=== PATIENT | male | born 1970 | race Caucasian/White ===

== ENCOUNTER 2017-01-28 19:00 | Emergency (ER) | payer BC, OTHER ==
[~2017-01-28] VITALS: Ht 174 cm; Wt 63.7 kg
[2017-01-28 19:00] VITALS: TEMP 36.8; Ht 174 cm; Wt 63.7 kg
[2017-01-28] MEDS ORDERED: MoRPHine SULFATE 4 MG/ML 1 ML CARP\\VIAL IV STA ×2 (19:06→19:23)
[2017-01-28] MEDS ORDERED: ADAL40KI INJ (19:10)
[2017-01-28] MEDS ORDERED: MoRPHine SULFATE 2 MG/ML CARP ONE (19:12)
[2017-01-28] MEDS ORDERED: ONDANSETRON INJ 2 MG/ML 2 ML VIAL ONE (19:12)
--- NOTE | 2017-01-28 19:35 | EMERGENCY ROOM VISIT NOTE ---
History Report prepared by Kenny: Marcelino Charles Under the Supervision of: Dr. Travis Mcerloy M.D. First contact with patient: 19:17 Chief Complaint: WRIST PAIN Stated Complaint: HAND INJURY History of Present Illness The patient is a 46 year old male who presents to the Emergency Room with complaints of a sudden right forearm injury that occurred prior to arrival today. The patient says that he was moving a heavy marble statue in his backyard and tripped. He notes that he was wearing flip flops at the time. The patient states that the statue fell on his right forearm. He says that he has no other injuries, but his right forearm is in exquisite pain. He denies any chest pain, neck pain, or back pain. Source of History: patient Onset: Prior to arrival today Position: arm (right) Symptom Intensity: exquisite Timing: other (sudden) Associated Symptoms: No neck pain, No chest pain, No back pain Note: No other associated symptoms noted. Review of Systems See HPI for pertinent positives & negatives. A total of 10 systems reviewed and were otherwise negative. Past Medical & Surgical Medical Problems: (1) Crohns disease Old medical records were reviewed. Nurse's notes were reviewed and I agree with. Family History No pertinent family history Social History Marital Status: Housing Status: lives with family Occupation Status: employed Current/Historical Medications Scheduled Adalimumab (Humira Pen), 0.8 ML INJ [id number] Scheduled PRN Oxycodone/Acetaminophen 5MG/325MG (Percocet 5MG/325MG), 1 TABLET PO Q6H PRN for Pain Zolpidem Tartrate (Ambien), 1 TAB PO HS PRN for Anxiety/Insomnia Allergies Coded Allergies: No Known Allergies (Unverified , 02/03/17) Physical Exam Vital Signs Date Time Temp Pulse Resp B/P (MAP) Pulse Ox O2 Delivery O2 Flow Rate FiO2 01/28/17 21:43 76 16 123/63 98 01/28/17 20:12 55 16 110/65 100 Room Air 01/28/17 19:00 36.8 58 16 98/66 100 Room Air Physical Exam General: Well developed well nourished uncomfortable appearing middle aged male with ice on right wrist, breathing comfortably on room air. Normal speech HEENT: Normal cephalic atraumatic. Pupils are equal round and reactive to light. Extraocular movements are intact. Oropharynx is pink with moist mucous membranes. No swelling of the mouth lips or tongue. Neck: Supple with a midline trachea. No meningeal signs or stiffness, no JVD or bruits. No Stridor. Chest: Clear to auscultation bilaterally. No wheezes or rhonchi. No increased work of breathing. Heart: regular rate and rhythm. Abdomen: Soft nontender, nondistended without rebound guarding or rigidity. Extremities: Right wrist abrasion, able to wiggle fingers, pain with movement. No calf tenderness or assymetry Spine/Back. Non tender to palpation. No CVA tenderness Skin: Good turgor without rashes. Neurologic exam: Cranial nerves two through 12 are intact. Motor and sensation are intact and symmetrical throughout. GCS of 15. Medical Decision & Procedures ER Provider Diagnostic Interpretation: X-ray results as stated below per interpretation by me and the radiologist: RIGHT WRIST MIN 3 VIEWS ROUTINE CLINICAL HISTORY: Right wrist crush injury. COMPARISON: None FINDINGS: There is an acute comminuted, mildly displaced distal right radial fracture which extends through the distal metadiaphysis and metaphysis with intra-articular extension. Several bone fragments are present. Fracture is displaced 6 mm. Carpal bones appear intact. There is no acute fracture of the distal right ulna. IMPRESSION: Acute comminuted, displaced distal right radial fracture with intra-articular extension, as described above. Electronically signed by: Hans Sanabria M.D. 01/28/2017 8:34 PM Dictated Date/Time: 01/28/2017 8:31 PM Laboratory Results 01/28/17 19:07 Test 01/28/17 19:07 Anion Gap 7.0 mmol/L (3-11) Est Creatinine Clear Calc Drug Dose 62.6 ml/min Estimated GFR () 74.8 Estimated GFR (Non- 64.5 BUN/Creatinine Ratio 11.3 (10-20) Calcium Level 9.1 mg/dl (8.5-10.1) Total Bilirubin 1.4 mg/dl (0.2-1) Aspartate Amino Transf (AST/SGOT) 23 U/L (15-37) Alanine Aminotransferase (ALT/SGPT) 28 U/L (12-78) Alkaline Phosphatase 66 U/L (45-117) Total Protein 7.2 gm/dl (6.4-8.2) Albumin 3.8 gm/dl (3.4-5.0) Globulin 3.4 gm/dl (2.5-4.0) Albumin/Globulin Ratio 1.1 (0.9-2) Laboratory studies as stated above per my review. Medications Administered Medications (Trade) Dose Ordered Sig/Gary Route Start Time Stop Time Status Last Admin Dose Admin Morphine Sulfate (MoRPHine SULFATE INJ) 2 mg NOW STAT IV 01/28/17 19:06 01/28/17 19:09 DC 01/28/17 19:30 2 MG Morphine Sulfate (MoRPHine SULFATE INJ) 2 mg STK-MED ONCE .ROUTE 01/28/17 19:12 01/28/17 19:13 DC 01/28/17 19:17 2 MG Ondansetron HCl (Zofran Inj) 4 mg STK-MED ONCE .ROUTE 01/28/17 19:12 01/28/17 19:13 DC 01/28/17 19:16 4 MG Morphine Sulfate (MoRPHine SULFATE INJ) 2 mg NOW STAT IV 01/28/17 19:23 01/28/17 19:25 DC 01/28/17 20:08 2 MG ED Course 1905: Ordered Morphine Sulfate Inj 2 mg IV. 1931: Past medical records reviewed. The patient was evaluated in room C7, and a complete history and physical examination were performed. 2009: I discussed the patient with Dr. Shah of [facility]. 2044: Ordered Roxicodone Immediate Rel 5MG Home Pack 1 homepack PO. 2106: Upon reevaluation, the patient is resting. I discussed the results and treatment plan with him. He verbalized agreement of the treatment plan. The patient was discharged home. Medical Decision Differentials include, but are not limited to; fracture, contusion, dislocation. This patient comes in after injuring his right wrist. On exam, there is some mild swelling there is no evidence of compartment syndrome or neurologic or neurovascular compromise. There is a small abrasion however this is closed. IV access established and he received several doses of IV morphine while he was here that did help with the pain. X-rays do show a comminuted distal fracture, there is some minimal displacement. We have discussed the case with Dr. Shah who has reviewed the x-rays and actually talked to the patient as well. We'll place him in a splint and give him pain management. He'll follow-up with Dr. Shah's office for further outpatient treatment. Head Trauma GCS Score: 15 Medication Reconcilliation Current Medication List: was personally reviewed by me Blood Pressure Screening Patient's blood pressure: Normal blood pressure Consults Time Called: 1999 Consulting Physician: Dr. Shah of [facility] Returned Call: 2009 I discussed the patient with Dr. Shah of [facility]. Impression Primary Impression: Right wrist fracture Scribe Attestation The scribe's documentation has been prepared under my direction and personally reviewed by me in its entirety. I confirm that the note above accurately reflects all work, treatment, procedures, and medical decision making performed by me. Departure Information Dispostion Home / Self-Care Prescriptions Zolpidem Tartrate (AMBIEN) 5 Mg Tab 1 TAB PO HS Y for Anxiety/Insomnia for 30 Days, #30 TAB 1 Refill Prov: Yassine Macias MD 01/28/17 Referrals No Doctor, Assigned Forms HOME CARE DOCUMENTATION FORM, IMPORTANT VISIT INFORMATION, WORK / SCHOOL INSTRUCTIONS Patient Instructions Fractures - [facility], My [facility] Additional Instructions -Follow up with Dr. Shah on Wednesday02/01/17 -Minimize use of the wrist. Keep the joint still by wearing the splint. -Elevate the wrist above the level of your heart -Please take Ibuprofen and/or Oxycodone provided for pain Problem Qualifiers Primary Impression: Right wrist fracture Encounter type: initial encounter Fracture type: closed Qualified Codes: S62.101A - Fracture of unspecified carpal bone, right wrist, initial encounter for closed fracture
--- NOTE | 2017-01-28 19:48 | EMERGENCY ROOM VISIT NOTE ---
History First contact with patient: 19:17 Chief Complaint: WRIST PAIN Stated Complaint: HAND INJURY History of Present Illness The patient is a 46 year old male who presents to the Emergency Room with complaints of crush injury to right distal wrist. An hr before arrival, patient was attempting to move heavy marble statue in his backyard while wearing flip flops. In the process patient tripped and fell backwards and the statue head fell on his right anterior wrist. He denies any other injuries including head injury. Patient subsequently had severe pain in the wrist. ROM is limited due to pain. He denies numbness, tingling. Review of Systems Pt denies headache, change in vision, fevers, chest pain, shortness of breath, nausea, vomiting, diarrhea, pain with urination, and melena. Past Medical/Surgical History Medical Problems: (1) Crohns disease Family History No pertinent family history Social History Marital Status: Housing Status: lives with family Occupation Status: employed Current/Historical Medications Scheduled Adalimumab (Humira Pen), 0.8 ML INJ [id number] Scheduled PRN Zolpidem Tartrate (Ambien), 1 TAB PO HS PRN for Anxiety/Insomnia Physical Exam Vital Signs Date Time Temp Pulse Resp B/P (MAP) Pulse Ox O2 Delivery O2 Flow Rate FiO2 01/28/17 20:12 55 16 110/65 100 Room Air 01/28/17 19:00 36.8 58 16 98/66 100 Room Air Physical Exam GENERAL: alert, no distress, non-toxic EYE EXAM: normal conjunctiva, PERRL and EOM's grossly intact NECK: supple, no nuchal rigidity, no adenopathy, non-tender LUNGS: Clear to auscultation. Normal chest wall mechanics HEART: no murmurs, S1 normal and S2 normal ABDOMEN: abdomen soft, non-tender, normo-active bowel sounds, no masses, no rebound or guarding. BACK: Back is symmetrical on inspection and there is no deformity, no midline tenderness, no CVA tenderness. UPPER EXTREMITIES: Rt wrist, abrasion, tender to palpation, ROM in all directions limited by pain, able to move fingers in all directions, sensation intact, no significant edema, LOWER EXTREMITIES: No pitting edema. NEURO EXAM: Normal sensorium, cranial nerves II-XII grossly intact, normal speech, no gross weakness of arms, no gross weakness of legs. Gross sensation intact. Medical Decision & Procedures Laboratory Results 01/28/17 19:07 Test 01/28/17 19:07 Anion Gap 7.0 mmol/L (3-11) Est Creatinine Clear Calc Drug Dose 62.6 ml/min Estimated GFR () 74.8 Estimated GFR (Non- 64.5 BUN/Creatinine Ratio 11.3 (10-20) Calcium Level 9.1 mg/dl (8.5-10.1) Total Bilirubin 1.4 mg/dl (0.2-1) Aspartate Amino Transf (AST/SGOT) 23 U/L (15-37) Alanine Aminotransferase (ALT/SGPT) 28 U/L (12-78) Alkaline Phosphatase 66 U/L (45-117) Total Protein 7.2 gm/dl (6.4-8.2) Albumin 3.8 gm/dl (3.4-5.0) Globulin 3.4 gm/dl (2.5-4.0) Albumin/Globulin Ratio 1.1 (0.9-2) Medications Administered Medications (Trade) Dose Ordered Sig/Gary Route Start Time Stop Time Status Last Admin Dose Admin Morphine Sulfate (MoRPHine SULFATE INJ) 2 mg NOW STAT IV 01/28/17 19:06 01/28/17 19:09 DC 01/28/17 19:30 2 MG Morphine Sulfate (MoRPHine SULFATE INJ) 2 mg STK-MED ONCE .ROUTE 01/28/17 19:12 01/28/17 19:13 DC 01/28/17 19:17 2 MG Ondansetron HCl (Zofran Inj) 4 mg STK-MED ONCE .ROUTE 01/28/17 19:12 01/28/17 19:13 DC 01/28/17 19:16 4 MG Morphine Sulfate (MoRPHine SULFATE INJ) 2 mg NOW STAT IV 01/28/17 19:23 01/28/17 19:25 DC 01/28/17 20:08 2 MG Medical Decision 46 yo M presented with crush injury to Right anterior wrist. VSS, limited ROM in wrist in all direction due to pain - Given 2 mg IV Morphine x 3 - Given 4mg IV Zofran - XR Rt Wrist : acute comminuted, displaced distal right radial fracture with intra-articular extension - Discussed case with Dr. Shah ( [facility]) - Sent home with Oxycodone IR Home pack - Prescribed Ambien on discharge - F/u with Dr. Shah on Thursday 02/01 Impression Primary Impression: Right wrist fracture Departure Information Dispostion Home / Self-Care Condition GOOD Prescriptions Zolpidem Tartrate (AMBIEN) 5 Mg Tab 1 TAB PO HS Y for Anxiety/Insomnia for 30 Days, #30 TAB 1 Refill Prov: Yassine Macias MD 01/28/17 Patient Instructions My [facility] Problem Qualifiers Primary Impression: Right wrist fracture Encounter type: initial encounter Fracture type: closed Qualified Codes: S62.101A - Fracture of unspecified carpal bone, right wrist, initial encounter for closed fracture
[2017-01-28 20:18] LABS: BUN/CREATININE RATIO 11.3 (10-20); CALCIUM 9.1 mg/dl (8.5-10.1); CREATININE 1.3 mg/dl (0.60-1.40); POTASSIUM 3.5 mmol/L (3.5-5.1)
[2017-01-28 20:21] LABS: ALB/GLOB RATIO 1.1 (0.9-2)
--- NOTE | 2017-01-28 20:35 | DIAGNOSTIC IMAGING REPORT ---
RIGHT WRIST MIN 3 VIEWS ROUTINE CLINICAL HISTORY: Right wrist crush injury. COMPARISON: None FINDINGS: There is an acute comminuted, mildly displaced distal right radial fracture which extends through the distal metadiaphysis and metaphysis with intra-articular extension. Several bone fragments are present. Fracture is displaced 6 mm. Carpal bones appear intact. There is no acute fracture of the distal right ulna. IMPRESSION: Acute comminuted, displaced distal right radial fracture with intra-articular extension, as described above. Electronically signed by: Hans Sanabria M.D. 01/28/2017 8:34 PM Dictated Date/Time: 01/28/2017 8:31 PM
[2017-01-28] MEDS ORDERED: OXYCODONE IR HOME PACK PO ONE (20:45)
[2017-01-28] MEDS ORDERED: ZOLP5TAB PO (21:22)
[2017-01-28 21:43] VITALS: BP 123/63; PULSE 76; O2SAT 98
[2017-02-03] MEDS ORDERED: OXYC-57 PO (06:28)
== END 2017-01-28 21:43 | disposition home or self-care (01) ==
LOC: EDBD 19:00 → EDUNIT# 19:00 → C.EDC 19:06
DX: S62.101A Fracture of unspecified carpal bone, right wrist, initial encounter for closed fracture (principal); W01.198A Fall on same level from slipping, tripping and stumbling with subsequent striking against other object, initial encounter; W22.8XXA Striking against or struck by other objects, initial encounter; Y93.89 Activity, other specified; Y99.8 Other external cause status; K50.90 Crohn's disease, unspecified, without complications; Z79.899 Other long term (current) drug therapy

== ENCOUNTER → 2017-02-03 | Day surgery (SDC) | payer OTHER ==
[2017-02-02 16:22] VITALS: Ht 174 cm; Wt 63.6 kg
[~2017-02-03] VITALS: Ht 174 cm; Wt 63.6 kg
[~2017-02-03] MED LIST: ADAL40KI INJ; ATROPINE SULFATE 0.1 MG/ML 5ML SYR IV PRN; BUPIVACAINE/EPINEPHRINE 0.5% MPF 1:200,000 10 ML VIAL ONE; CEFAZOLIN 1000MG/55 ML D5W IV SCH; CEFAZOLIN SOD 1 GM VIAL ONE; CEFAZOLIN SOD 1000MG/55 ML D5W IV ONE; EpHEDrine SULFATE INJ 50 MG/ML AMP IV PRN; FENTANYL CITRATE INJ 50 MCG/1 ML 2 ML VIAL ONE; KETOROLAC TROMETHAMINE 30 MG/ML VIAL ONE; LACTATED RINGER'S 1000ML 1,000 ML IV SCH; LIDOCAINE HCL 2% 2 ML VIAL (20MG/ML) ONE; MIDAZOLAM HCL 1 MG/ML 2ML VIAL ONE; ONDANSETRON INJ 2 MG/ML 2 ML VIAL IV PRN; ONDANSETRON INJ 2 MG/ML 2 ML VIAL ONE; OXYC-57 PO; OXYCODONE/ACETAMINOPHEN 5-325 TAB PO PRN; PATIENT'S HEIGHT AND/OR WEIGHT NEEDED SCH; PROMETHAZINE HCL INJ 6.25 MG in SODIUM CHLORIDE 0.9% 50ML 50 ML IV PRN; PROPOFOL IV EMULSION 10 MG/ML 20 ML VIAL IV ONE; SODIUM CHLORIDE 0.9% 1000ML 1,000 ML IV SCH; SUCCINYLCHOLINE CHLORIDE 20 MG/ML 10 ML VIAL IV ONE; ZOLP5TAB PO
--- NOTE | 2017-02-03 06:55 | History & Physical Bridge - SC ---
H&P Re-Evaluation Bridge Note: I have examined the patient, reviewed the History & Physical and in the interval since the performance of the History & Physical I have noted the following changes of clinical significance: No changes noted
--- NOTE | 2017-02-03 09:50 | Discharge Instructions-SurgCtr ---
Discharge Instructions Date of Service Feb 03, 2017. Visit Reason for Visit: Right Closed Colles' Fracture Discharge Discharge Diagnosis / Problem: RIGHT DISTAL RADIUS FRACTURE Discharge Goals Goal(s): Improve function, Therapeutic intervention Activity Recommendations Activity Limitations: per Instructions/Follow-up section LIMITED USE OF RIGHT HAND Anesthesia . Post Anesthesia Instructions: If you have had General Anesthesia or IV Sedation: * Do not drive today. * Resume driving when surgeon permits. * Do not make important decisions or sign legal documents today. * Call surgeon for: 1. Temperature elevations greater than 101 degrees F. 2. Uncontrollable pain. 3. Excessive bleeding. 4. Persistent nausea and vomiting. 5. Medication intolerance (nausea, vomiting or rash). * For nausea and vomiting use only clear liquids such as: tea, soda, bouillon until nausea subsides, then gradually increase diet as tolerated. * If you have any concerns or questions, call your surgeon's office. If physician is unavailable and it is an emergency, call 911 or go to the nearest emergency room. . Instructions / Follow-Up Instructions / Follow-Up MEDICATIONS: * Resume previous medications unless instructed otherwise by your surgeon. * Always take pain medication on a full stomach or with food to avoid upset stomach. * Do not drink alcohol or drive while taking narcotics. * Ibuprofen or Tylenol may be taken if narcotic not needed. SPECIAL CARE INSTRUCTIONS: __ None _X_ Keep extremity elevated and iced x 48 hours; apply ice 20-30 minutes 8-10 times/day. May remove at night. _X_ Sling __24 hrs/day __ Remove at night __ Shoulder Immobilizer __ 24 hrs/day __ Remove at night _X_ Dressing _X_ Maintain until seen in office, may shower with plastic over site __ Remove dressings in 24-48 hours and then may shower __ Cover incisions with band-aids after showering __ Do not remove steri-strips Call physician if chills or temperature rises above 102 degrees or pain unrelieved by prescribed pain medications at . FOLLOW UP IN 2 WEEKS . Diet Recommendations Home Diet: resume previous diet Procedures Procedures Performed: Right Distal Radius Open Reduction Internal Fixation Pending Studies Studies pending at discharge: no Medical Emergencies . Who to Call and When: Medical Emergencies: If at any time you feel your situation is an emergency, please call 911 immediately. . Non-Emergent Contact Non-Emergency issues call your: Surgeon . . "Provider Documentation" section prepared by Adolfo Michael. .
--- NOTE | 2017-02-03 09:51 | [facility] Post Operative Brief Note ---
Immediate Operative Summary Operative Date Feb 03, 2017. Pre-Operative Diagnosis Right Displaced Intra-articular Distal Radius Fracture Post-Operative Diagnosis Same Procedure(s) Performed Right Distal Radius Open Reduction Internal Fixation Surgeon Dr. Shah Roller Varnisher Surgeon(s) Sanjeev Michael PA-C Estimated Blood Loss 20 ML Findings Displaced Intr-articular distal radius fracture Specimens None Anesthesia General Complication(s) None Disposition Recovery Room / PACU
[2017-02-03] MEDS: FENTANYL CITRATE INJ 50 MCG/1 ML 2 ML VIAL IV PRN ×3 (10:14→10:38)
--- NOTE | 2017-02-03 10:34 | Anesthesiology Progress Note ---
Anesthesia Post Op Note Date & Time Feb 03, 2017 at 10:34 Vital Signs Pain Intensity: 8.0 Vital Signs Past 12 Hours Date Time Temp Pulse Resp B/P (MAP) Pulse Ox O2 Delivery O2 Flow Rate FiO2 02/03/17 10:16 131/70 02/03/17 10:12 72 14 98 02/03/17 10:12 72 14 98 02/03/17 10:12 72 14 02/03/17 10:12 72 14 02/03/17 10:11 127/72 02/03/17 10:11 127/72 02/03/17 10:07 71 18 02/03/17 10:07 18 02/03/17 10:07 71 18 02/03/17 10:07 18 02/03/17 10:06 130/60 02/03/17 10:06 130/60 02/03/17 10:02 13 02/03/17 10:02 13 02/03/17 10:02 80 13 02/03/17 10:02 80 13 02/03/17 10:01 115/64 02/03/17 10:01 115/64 02/03/17 09:57 94 10 98 02/03/17 09:57 95 10 02/03/17 09:57 94 10 98 02/03/17 09:57 95 10 02/03/17 09:52 103 97 02/03/17 09:52 103 02/03/17 09:52 103 97 02/03/17 09:52 103 02/03/17 06:29 36.6 60 16 122/72 (89) 99 Room Air Notes Mental Status: alert / awake / arousable, participated in evaluation Pt Amnestic to Procedure: Yes Nausea / Vomiting: adequately controlled Pain: adequately controlled Airway Patency, RR, SpO2: stable & adequate BP & HR: stable & adequate Hydration State: stable & adequate Anesthetic Complications: no major complications apparent
--- NOTE | 2017-02-03 10:35 | OPERATIVE REPORT ---
DATE OF OPERATION: 02/03/2017 PREOPERATIVE DIAGNOSIS: Right displaced intraarticular distal radius fracture. POSTOPERATIVE DIAGNOSIS: Same. PROCEDURE: Open reduction internal fixation right displaced intraarticular distal radius fracture. SURGEON: Dr. Prince Shah. INSPECTOR PAPER PRODUCTS: Adolfo Michael PA-C. COMPLICATIONS: None. ESTIMATED BLOOD LOSS: 20 mL. TOURNIQUET TIME: 88 minutes at 250 mmHg. ANESTHESIA: General. SPECIMENS: None. 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 He had 500 pound object land on his wrist. He had the acute onset of pain, discomfort, swelling. His fracture was initially fairly minimally displaced, but seemed to shortened slightly over the next several days. He did have a history of carpal tunnel symptoms in the past but has not had any symptoms for quite some time and no recurrence of symptoms since his fracture. His carpal tunnel symptoms had resolved previously and he had no current carpal tunnel symptoms at the time of his injury. The patient is indicated for open reduction internal fixation. We did not do a carpal tunnel release as he has got no current symptoms. OPERATIVE IMPLANTS: Operative implants consisted of: 1. A Synthes 2.4 mm dorsal L locking plate with a 2-hole bend and 4-hole shaft. 2. A 2.4 mm Synthes radial styloid locking plate with 6 holes. 3. A 2.4 mm fully threaded cortical screws x8. OPERATIVE PROCEDURE: The patient taken to the operating room, identified and placed on the operating table in supine position. All contact areas were appropriately padded. IV antibiotics were provided by the anesthesia team. General anesthetic was implemented by anesthesia team. The right arm splint was then removed. I then shaved the dorsal aspect of the wrist with the clippers. I then scrubbed the hand and arm with Hibiclens. We then prepped it with Hibiclens and draped it in the usual sterile fashion. X-ray was brought in. I examined the wrist. The right arm was then elevated and exsanguinated using an Esmarch and tourniquet was placed at 250 mmHg. A dorsal incision was made over the dorsal ulnar side of the radius through the fourth dorsal compartment. We elected to avoid the EPL/third compartment. I performed exposure directly down to the dorsal radius. I then identified the fracture site and cleaned it of soft tissues. We tried to reduce this and pull some longitudinal traction to get it reduced. We were able to nearly get anatomically reduced. Through this incision site I was able to get to the radial styloid piece and reduce that some which helped the dorsal fragment reduction. I then took a 6-hole L distal dorsal radial locking plate and fixed it proximally with two 2.4 mm cortical screws to provide a buttress, antiglide effect and reduce the fracture. I then placed a lag screw distally across the fracture site. It did not quite anatomically reduce the fracture dorsally but very close. I then proceeded with the radial styloid exposure. A direct approach to the radial styloid was then performed between the first and second dorsal compartments keeping as wide a skin bridge as possible. Blunt dissection was carried down through the subcutaneous tissues. A large branch of the superficial radial nerve was identified and protected throughout the case. The interval between the first and second dorsal compartments were identified and we did have to mobilize the outcropper muscles and move them back and forth to place the plate. The fracture was exposed. A 6-hole radial styloid plate was then fixed to the proximal radius with 2 screws. I then fixed it distally with two 2.4 mm screws placed in a lag fashion to snug the radial styloid piece down. This did reduce the fracture and snug the radial styloid piece down. I then placed 1 additional 2.4 mm screw through the dorsal plate distally. I did not place any more distal screws as I did not feel they were required for fixation and it would only irritate the tendons. Some final x-rays were obtained. I took the wrist through range of motion and there were no signs of any motion at the fracture site. Attention was then drawn toward closing. The wound was irrigated with copious amounts of normal saline. The tourniquet was let down for a tourniquet time of 88 minutes. There were several large bleeders and we cauterized these. I did inject locally with 30 mL of 0.5% Marcaine with epinephrine. His wrist was quite swollen. We did loosely close the dorsal fascia. The extensor retinaculum was just released in the proximal half and we left the distal portion intact. I did not close this dorsal part as I felt it was too swollen. The subcutaneous tissues were then closed with 2-0 Vicryl suture in a buried interrupted fashion. Skin was closed with a combination of 3-0 and 4-0 nylon in a simple fashion. Skin closure was tight. A sterile dressing composed of Xeroform, 4 x 4's, sterile cast padding and a dorsal and volar splint were applied. He was placed in a sling. He was brought out of general anesthesia and transferred to the recovery room in stable condition. The patient tolerated the procedure with no complications. All needle and sponge counts were correct at the end of the operation. I attest to the content of the Intraoperative Record and any orders documented therein. Any exceptions are noted below. MTDD
[2017-02-03 11:01] VITALS: TEMP 37.4
[2017-02-03 12:00] VITALS: BP 120/72; PULSE 73; O2SAT 99
--- NOTE | 2017-02-04 07:36 | DIAGNOSTIC IMAGING REPORT ---
INTRAOPERATIVE RADIOGRAPHS CLINICAL HISTORY: Open reduction and internal fixation of the right radius. Fluoroscopy time: 54 seconds. FINDINGS: 2 spot fluoroscopic views of the right wrist are correlated with radiographs dated 01/28/2017. There has been buttress plate fixation of the distal radius. [address] are in place with numerous cortical lag screws. The orthopedic hardware appears intact and the fracture fragments are in near-anatomic alignment. Overlying soft tissue edema is identified. IMPRESSION: Intraoperative images from open reduction and internal fixation of the distal right radius as above. Electronically signed by: Ned Grant M.D. 02/03/2017 9:57 AM Dictated Date/Time: 02/03/2017 9:54 AM
== END | disposition home or self-care (01) ==
LOC: X.SURG 06:13
PROVIDERS: ATTEND Orthopaedic Surgery Sports Medicine
DX: S52.571A Other intraarticular fracture of lower end of right radius, initial encounter for closed fracture (principal); K50.90 Crohn's disease, unspecified, without complications; W22.8XXA Striking against or struck by other objects, initial encounter

== ENCOUNTER → 2018-02-14 | Outpatient (CLI) | payer OTHER ==
[~2018-02-14] MED LIST changes: -ATROPINE SULFATE 0.1 MG/ML 5ML SYR IV PRN; -BUPIVACAINE/EPINEPHRINE 0.5% MPF 1:200,000 10 ML VIAL ONE; -CEFAZOLIN 1000MG/55 ML D5W IV SCH; -CEFAZOLIN SOD 1 GM VIAL ONE; -CEFAZOLIN SOD 1000MG/55 ML D5W IV ONE; -EpHEDrine SULFATE INJ 50 MG/ML AMP IV PRN; -FENTANYL CITRATE INJ 50 MCG/1 ML 2 ML VIAL ONE; -KETOROLAC TROMETHAMINE 30 MG/ML VIAL ONE; -LACTATED RINGER'S 1000ML 1,000 ML IV SCH; -LIDOCAINE HCL 2% 2 ML VIAL (20MG/ML) ONE; -MIDAZOLAM HCL 1 MG/ML 2ML VIAL ONE; -ONDANSETRON INJ 2 MG/ML 2 ML VIAL IV PRN; -ONDANSETRON INJ 2 MG/ML 2 ML VIAL ONE; -OXYCODONE/ACETAMINOPHEN 5-325 TAB PO PRN; -PATIENT'S HEIGHT AND/OR WEIGHT NEEDED SCH; -PROMETHAZINE HCL INJ 6.25 MG in SODIUM CHLORIDE 0.9% 50ML 50 ML IV PRN; -PROPOFOL IV EMULSION 10 MG/ML 20 ML VIAL IV ONE; -SODIUM CHLORIDE 0.9% 1000ML 1,000 ML IV SCH; -SUCCINYLCHOLINE CHLORIDE 20 MG/ML 10 ML VIAL IV ONE
[2018-02-14 09:55] LABS: BASO % 0.5 %; BASO ABS # 0.04 K/uL (0-0.2); EOS % 3.4 %; EOS ABS # 0.25 K/uL (0-0.5); HEMATOCRIT 38.9 % (42-52); HEMOGLOBIN 12.9 g/dL (14.0-18.0); IG# 0.02 K/uL (0.00-0.02); LYMPH % 41.8 %; LYMPH ABS # 3.09 K/uL (1.2-3.4); MEAN CELL VOLUME 90.3 fL (80-100); MEAN CORPUSCULAR HEMOGLOBIN 29.9 pg (25-34); MEAN CORPUSCULAR HGB CONC 33.2 g/dl (32-36); MEAN PLATELET VOLUME 11.1 fL (7.4-10.4); MONO % 8.5 %; MONO ABS # 0.63 K/uL (0.11-0.59); NEUT % 45.5 %; NEUT ABS # 3.36 K/uL (1.4-6.5); PLATELET COUNT 303 K/uL (130-400); RED CELL DISTRIBUTION WIDTH CV 13.2 % (11.5-14.5); RED CELL DISTRIBUTION WIDTH SD 43.7 fL (36.4-46.3); WHITE BLOOD COUNT 7.39 K/uL (4.8-10.8)
[2018-02-14 10:23] LABS: ALBUMIN 3.7 gm/dl (3.4-5.0); ALKALINE PHOSPHATASE 60 U/L (45-117); ALT/SGPT 33 U/L (12-78); AST/SGOT 29 U/L (15-37); BLOOD UREA NITROGEN 16 mg/dl (7-18); CALCIUM 8.9 mg/dl (8.5-10.1); CARBON DIOXIDE 28 mmol/L (21-32); GLUCOSE 133 mg/dl (70-99); POTASSIUM 3.9 mmol/L (3.5-5.1); SODIUM 139 mmol/L (136-145); TOTAL PROTEIN 7.4 gm/dl (6.4-8.2)
== END | disposition home or self-care (01) ==
LOC: C.LAB 07:18
PROVIDERS: ATTEND Emergency Medicine
DX: K50.90 Crohn's disease, unspecified, without complications (principal)